=== PATIENT | male | born 1950 | race Two or more races ===

== ENCOUNTER 2017-12-28 09:49 | Inpatient (IN) | payer MEDICARE ==
[~2017-12-28] VITALS: Ht 167.6 cm; Wt 123.0 kg
[2017-12-28] VITALS (12 sets, daily range): BP systolic 120–163; BP diastolic 49–93
[~2017-12-28 09:49] MED LIST: AMLO10TA PO; ASPI81TA30 PO; ATEN50TA PO; ATOR40TA PO; COU7.5T PO; HYDR-4353 PO; LEVO500T89 PO; LISI40TA4 PO; OXYC-658 PO; WARF-55 PO
[2017-12-28] MEDS ORDERED: diphenhydrAMINE 25mg capsule PO PRN (10:30)
[2017-12-28] MEDS ORDERED: LORazepam 0.5 MG tablet PO PRN (10:30)
[2017-12-28] MEDS ORDERED: LIDOcaine/PRILOcaine 5gm cream TP ONE (10:30)
[2017-12-28] MEDS ORDERED: COU3T PO (10:36)
[2017-12-28] MEDS ORDERED: HYDR-4353 PO (10:36)
[2017-12-28] MEDS ORDERED: ENOX40SY7 SQ (10:42)
[2017-12-28] MEDS: normal saline 1000ml 1,000 ML IV SCH ×3 (11:21→20:30)
[2017-12-28 11:42] LABS: INR 1.1 INR; PROTHROMBIN TIME 10.9 SECONDS (9.0-12.0)
[2017-12-28] MEDS ORDERED: LIDOcaine 1% (10mg/ml)w/preservative injection 20ml MDV ONE (12:00)
[2017-12-28] MEDS ORDERED: fentaNYL/PF 50MCG/1 ML 2ML syringe ONE (12:00)
[2017-12-28] MEDS ORDERED: midazolam 2 mg/2 ml injection ONE (12:00)
[2017-12-28] MEDS ORDERED: iohexol 350MG/ML 100ml bottle IV ONE (12:00)
[2017-12-28] MEDS ORDERED: nitroGLYCERIN-Tridil 50MG/D5W 250 ML IV ONE (12:09)
[2017-12-28] MEDS ORDERED: verapamil 2.5 mg/ml inj IV ONE (12:09)
[2017-12-28] MEDS ORDERED: heparin 1,000unit/ml 10ml vial 10 ML ONE (12:10)
[2017-12-28] MEDS ORDERED: iohexol 350 MG/ML 50ML vial IV ONE (12:49)
[2017-12-28] MEDS ORDERED: OXAZEpam 15mg capsule PO PRN (13:35)
[2017-12-28] MEDS ORDERED: ondansetron/PF 4mg/2ml inj IV PRN ×2 (13:35→17:45)
[2017-12-28] MEDS ORDERED: nitroGLYCERIN 0.4mg SUBLingual tab SL PRN (13:35)
[2017-12-28] MEDS ORDERED: proCHLORperazine 10 MG/2 ml inj IV PRN (13:35)
[2017-12-28] MEDS ORDERED: dextrose 50%-water 50ml dispensing syringe IV PRN (17:15)
[2017-12-28] MEDS ORDERED: MESSAGE TO NURSING PO ONE ×4 (17:15)
[2017-12-28] MEDS ORDERED: morphine 2 MG/ML inj. syringe IV PRN ×2 (17:45)
[2017-12-28] MEDS ORDERED: mag hydrox/Alum hydrox/simeth 30ml oral suspension PO PRN (17:45)
[2017-12-28] MEDS ORDERED: bisacodyl 10mg suppository rectal RC PRN (17:45)
[2017-12-28] MEDS ORDERED: docusate sod 100mg capsule PO PRN (17:45)
[2017-12-28] MEDS ORDERED: potassium Cl 20 mEq SR tablet PO PRN ×2 (17:45)
[2017-12-28] MEDS ORDERED: magnesium 1gm/100ml D5W IVPB 100 ML IV PRN (17:45)
[2017-12-28] MEDS ORDERED: magnesium Cl slow-release 64mg tablet PO PRN (17:45)
[2017-12-28] MEDS ORDERED: acetaminophen 325mg tablet PO PRN ×2 (17:45)
[2017-12-28] MEDS ORDERED: potassium Cl 40MEQ/NS 500ml 500 ML IV PRN ×2 (17:45)
[2017-12-28] MEDS ORDERED: magnesium 4gm in 100ml NS 100 ML IV PRN (17:45)
[2017-12-28] MEDS ORDERED: HYDROcodone/acetaminophen 10/325mg tab PO PRN (17:50)
[2017-12-28] MEDS ORDERED: insulin Lispro (HumaLOG) vial - multi-dose SQ SCH (18:00)
[2017-12-28 18:54] LABS: HEMATOCRIT 44.6 % (42.0-52.0); HEMOGLOBIN 14.8 g/dl (14.0-17.9); MEAN CORPUSCULAR HEMOGLOBIN 30.2 PG (27.0-31.0); MEAN CORPUSCULAR HGB CONC 33.3 % (33.0-36.5); MEAN CORPUSCULAR VOLUME 90.9 FL (78-98); MEAN PLATELET VOLUME 10.5 FL (7.4-10.4); PLATELET COUNT 159 X10'3 (140-440); RED BLOOD COUNT 4.91 X10'6 (4.70-6.10); RED CELL DISTRIBUTION WIDTH 13.4 % (11.5-14.5); WHITE BLOOD COUNT 8.4 X10'3 (4.5-11.0)
[2017-12-28 19:02] LABS: ALANINE AMINOTRANSFERASE 71 U/L (12-78); ALBUMIN 3.3 G/DL (3.4-5.0); ALBUMIN/GLOBULIN RATIO 0.8 (1.1-1.5); ALKALINE PHOSPHATASE 81 IU/L (46-116); ANION GAP 7 (8-16); ASPARTATE AMINO TRANSFERASE 58 U/L (10-37); BILIRUBIN,TOTAL 0.7 MG/DL (0.1-1.0); BLOOD UREA NITROGEN 19 MG/DL (7-18); BUN/CREATININE RATIO 19.6 (5.4-32.0); CALCIUM 9.2 MG/DL (8.5-10.1); CHLORIDE 105 MMOL/L (99-107); CREATININE 0.97 MG/DL (0.60-1.10); GLUCOSE 110 MG/DL (70-104); POTASSIUM 3.8 MMOL/L (3.5-5.1); SODIUM 140 MMOL/L (135-145); TOTAL CARBON DIOXIDE 27.8 MMOL/L (24-32); TOTAL PROTEIN 7.4 G/DL (6.4-8.2); eGFR 77 ML/MIN
[2017-12-28 19:08] LABS: PARTIAL THROMBOPLASTIN TIME 27 SECONDS (22-32); PROTHROMBIN TIME 10.7 SECONDS (9.0-12.0)
[2017-12-28 19:16] LABS: HEMOGLOBIN A1C 6.1 % (4.5-6.2)
[2017-12-28] MEDS: enoxaparin 60mg/0.6ml syringe SUBCUT SCH (20:00)
[2017-12-28] MEDS: atorvastatin 20mg tablet PO SCH (21:00)
[2017-12-29 03:00] VITALS: BP 142/64
[2017-12-29] MEDS ORDERED: insulin regular, human inj. 100 UNITS in normal saline 100ml IV soln 100 ML IV SCH ×2 (05:00)
[2017-12-29 05:13] LABS: BASOPHILS % (AUTO) 0.5 % (0-1); EOSINOPHILS # (AUTO) 0.1 X10'3 (0-0.9); EOSINOPHILS % (AUTO) 0.9 % (0-6); HEMATOCRIT 41.3 % (42.0-52.0); LYMPHOCYTES # (AUTO) 1.6 X10'3 (1.1-4.8); LYMPHOCYTES % (AUTO) 19.6 % (21-51); MEAN CORPUSCULAR HEMOGLOBIN 31.1 PG (27.0-31.0); MEAN CORPUSCULAR VOLUME 91.4 FL (78-98); MEAN PLATELET VOLUME 10.2 FL (7.4-10.4); MONOCYTES # (AUTO) 0.9 X10'3 (0-0.9); MONOCYTES % (AUTO) 10.9 % (2-12); NEUTROPHILS # (AUTO) 5.3 X10'3 (1.8-7.7); NEUTROPHILS % (AUTO) 68.1 % (42-75); PLATELET COUNT 135 X10'3 (140-440); RED BLOOD COUNT 4.52 X10'6 (4.70-6.10); RED CELL DISTRIBUTION WIDTH 13.2 % (11.5-14.5); WHITE BLOOD COUNT 7.9 X10'3 (4.5-11.0)
[2017-12-29 05:41] LABS: ALANINE AMINOTRANSFERASE 83 U/L (12-78); ALBUMIN/GLOBULIN RATIO 0.8 (1.1-1.5); ALKALINE PHOSPHATASE 81 IU/L (46-116); ANION GAP 10 (8-16); ASPARTATE AMINO TRANSFERASE 56 U/L (10-37); BILIRUBIN,TOTAL 0.5 MG/DL (0.1-1.0); BLOOD UREA NITROGEN 18 MG/DL (7-18); BUN/CREATININE RATIO 19.6 (5.4-32.0); CALCIUM 8.7 MG/DL (8.5-10.1); CHLORIDE 104 MMOL/L (99-107); CHOL/HDL RATIO 4.6 (0.00-4.99); CHOLESTEROL 130 MG/DL (0-200); CREATININE 0.92 MG/DL (0.60-1.10); GLUCOSE 116 MG/DL (70-104); HDL CHOLESTEROL 28 MG/DL (35-60); LDL CHOLESTEROL 82 MG/DL (50-100); MAGNESIUM 1.5 MG/DL (1.5-2.4); POTASSIUM 4.2 MMOL/L (3.5-5.1); SODIUM 140 MMOL/L (135-145); TOTAL PROTEIN 6.8 G/DL (6.4-8.2); TRIGLYCERIDES 137 MG/DL (20-135); eGFR 82 ML/MIN
[2017-12-29 05:46] LABS: PROTHROMBIN TIME 10.8 SECONDS (9.0-12.0)
[2017-12-29 06:00] VITALS: BP 154/61
[2017-12-29] MEDS: normal saline 1000ml 1,000 ML IV SCH ×3 (06:30→18:54)
[2017-12-29] MEDS: lisinopril 20mg tablet PO SCH (07:59)
[2017-12-29] MEDS: aspirin 81mg tablet.DR PO SCH (07:59)
[2017-12-29] MEDS: enoxaparin 60mg/0.6ml syringe SUBCUT SCH (08:00)
[2017-12-29] MEDS: K and/or MAG REPLACEMENT MC SCH (08:00)
[2017-12-29] MEDS: atenolol 50mg tablet PO SCH (08:00)
[2017-12-29] MEDS: amLODIPine 5mg tablet PO SCH (08:00)
[2017-12-29] MEDS ORDERED: MESSAGE TO NURSING PO ONE ×4 (10:00→13:00)
[2017-12-29] MEDS ORDERED: iohexol 350MG/ML 100ml bottle IV ONE (10:50)
[2017-12-29] MEDS ORDERED: ceFAZolin inj. 3,000 MG in normal saline 100ml IV soln 100 ML IV ONE (13:00)
[2017-12-29] MEDS ORDERED: albuterol 2.5 MG/3 ML nebule NEB ONE (14:40)
[2017-12-29 15:00] VITALS: BP 134/74
[2017-12-29 19:00] VITALS: BP 172/73
[2017-12-29 19:41] LABS: ABG BASE EXCESS -0.7 mmol/L (-2.0-3.0); ABG HCO3 23.4 mmol/L (22.0-26.0); ABG OXYGEN SATURATION 94.9 % (95-98); ABG PCO2 (T) 37.1 mmHg (35.0-48.0); ABG PH (T) 7.418 (7.350-7.450); ALLEN'S TEST Positive; FCOHb 0.7 % (0.5-1.5); FMetHb 0.3 % (0.3-1.12); PATIENT TEMPERATURE 36.8; RESPIRATORY RATE (OBSERVED) 14 b/min; TOTAL HEMOGLOBIN 15.4 G/dl (14.0-18.0)
[2017-12-29] MEDS ORDERED: mupirocin 2% ointment 22GM NS SCH (20:00)
[2017-12-29] MEDS: mupirocin 2% nasal ointment 1gm UD NS SCH ×3 (20:00→20:10)
[2017-12-29] MEDS: atorvastatin 20mg tablet PO SCH (20:07)
[2017-12-29] MEDS ORDERED: warfarin 3mg tablet PO SCH (21:00)
[2017-12-29 23:00] VITALS: BP 122/83
[2017-12-30] VITALS (20 sets, daily range): BP systolic 102–148; BP diastolic 50–70
[2017-12-30] MEDS: normal saline 1000ml 1,000 ML IV SCH (01:53)
[2017-12-30] MEDS ORDERED: ceFAZolin inj. 3,000 MG in normal saline 100ml IV soln 100 ML IV ONE (05:00)
[2017-12-30] MEDS ORDERED: calcium chloride 100 MG/1 ML inj IV ONE (06:00)
[2017-12-30] MEDS ORDERED: potassium Cl 2 mEq/ml inj IV ONE (06:00)
[2017-12-30] MEDS ORDERED: heparin 10,000 units/1 ML INJ ONE (06:00)
[2017-12-30] MEDS ORDERED: magnesium sulf 1 GM/2 ML ONE (06:00)
[2017-12-30] MEDS ORDERED: albumin (human) 25% 100 ML IV solution IV ONE (06:00)
[2017-12-30] MEDS ORDERED: LIDOcaine 2% (20 mg/ml) 5ml cardiac syringe ONE (06:00)
[2017-12-30] MEDS ORDERED: methylPREDNISolone sod succ 1000mg vial ONE (06:00)
[2017-12-30] MEDS ORDERED: sodium bicarbonate (8.4%) 1 mEq/ml syringe ONE (06:00)
[2017-12-30] MEDS ORDERED: famotidine 20mg tablet PO ONE (06:00)
[2017-12-30] MEDS ORDERED: LORazepam 2 mg/ml vial IV ONE (06:00)
[2017-12-30] MEDS: ringers solution, lacted 1,000 ML IV SCH (06:19)
[2017-12-30 06:23] LABS: ALANINE AMINOTRANSFERASE 87 U/L (12-78); ALBUMIN 3.1 G/DL (3.4-5.0); ALBUMIN/GLOBULIN RATIO 0.8 (1.1-1.5); ALKALINE PHOSPHATASE 77 IU/L (46-116); ANION GAP 10 (8-16); ASPARTATE AMINO TRANSFERASE 49 U/L (10-37); BILIRUBIN,TOTAL 0.7 MG/DL (0.1-1.0); BLOOD UREA NITROGEN 17 MG/DL (7-18); BUN/CREATININE RATIO 18.9 (5.4-32.0); CALCIUM 8.7 MG/DL (8.5-10.1); CHLORIDE 104 MMOL/L (99-107); GLUCOSE 113 MG/DL (70-104); MAGNESIUM 1.5 MG/DL (1.5-2.4); SODIUM 138 MMOL/L (135-145); TOTAL CARBON DIOXIDE 24.4 MMOL/L (24-32); eGFR 84 ML/MIN
[2017-12-30] MEDS: atenolol 50mg tablet PO SCH (06:24)
[2017-12-30 06:27] LABS: PROTHROMBIN TIME 10.7 SECONDS (9.0-12.0)
[2017-12-30] MEDS ORDERED: SUFENTANIL CITRATE 50 MCG/ML 2ml ampule IV ONE (06:45)
[2017-12-30] MEDS ORDERED: MIDAZolam 1mg/ml 10ml vial ONE (06:45)
[2017-12-30] MEDS ORDERED: propofol inj 20 ML IV ONE (06:47)
[2017-12-30] MEDS ORDERED: rocuronium 10mg/ml inj IV ONE ×4 (06:51→11:01)
[2017-12-30 07:02] LABS: BASOPHILS % (AUTO) 0.2 % (0-1); EOSINOPHILS # (AUTO) 0.1 X10'3 (0-0.9); EOSINOPHILS % (AUTO) 0.7 % (0-6); HEMATOCRIT 43.2 % (42.0-52.0); HEMOGLOBIN 14.3 g/dl (14.0-17.9); LYMPHOCYTES # (AUTO) 1.5 X10'3 (1.1-4.8); LYMPHOCYTES % (AUTO) 16.3 % (21-51); MEAN CORPUSCULAR HEMOGLOBIN 30.6 PG (27.0-31.0); MEAN CORPUSCULAR HGB CONC 33.1 % (33.0-36.5); MEAN CORPUSCULAR VOLUME 92.5 FL (78-98); MEAN PLATELET VOLUME 10.2 FL (7.4-10.4); MONOCYTES % (AUTO) 11.4 % (2-12); NEUTROPHILS # (AUTO) 6.5 X10'3 (1.8-7.7); NEUTROPHILS % (AUTO) 71.4 % (42-75); PLATELET COUNT 138 X10'3 (140-440); RED BLOOD COUNT 4.67 X10'6 (4.70-6.10); RED CELL DISTRIBUTION WIDTH 13.1 % (11.5-14.5); WHITE BLOOD COUNT 9.1 X10'3 (4.5-11.0)
[2017-12-30 07:36] LABS: ABG BASE EXCESS -4.6 mmol/L (-2.0-3.0); ABG HCO3 20.7 mmol/L (22.0-26.0); ABG OXYGEN SATURATION 96.7 % (95-98); ABG PCO2 39.1 mmHg (35.0-45.0); ABG PH 7.342 (7.350-7.450); ABG PO2 91.4 mmHg (60.0-100.0); CL (ABG) 105 mmol/L (99-107); FMetHb 0.2 % (0.3-1.12); FO2Hb 95.5 % (94-100); GLUCOSE (ABG) 121 mg/dl (70-105); IONIZED CA (ABG) 1.15 mmol/L (1.03-1.32); K (ABG) 3.9 mmol/L (3.3-5.1); NA (ABG) < 110 mmol/L (135-145); TOTAL HEMOGLOBIN 13.6 G/dl (14.0-18.0)
[2017-12-30] MEDS ORDERED: heparin 10,000 units/1 ML INJ IR ONE (07:58)
[2017-12-30] MEDS ORDERED: papaverine 30 mg/ml 2ml inj. IA ONE (07:58)
[2017-12-30] MEDS: amLODIPine 5mg tablet PO SCH (08:00)
[2017-12-30] MEDS: K and/or MAG REPLACEMENT MC SCH (08:00)
[2017-12-30] MEDS: mupirocin 2% nasal ointment 1gm UD NS SCH (08:00)
[2017-12-30] MEDS: lisinopril 20mg tablet PO SCH (08:00)
[2017-12-30] MEDS: aspirin 81mg tablet.DR PO SCH (08:00)
[2017-12-30 09:15] LABS: ABG BASE EXCESS VENOUS -5.5 mmol/L; ABG HCO3 VENOUS 20.1 mmol/L; ABG PCO2 VENOUS 39.4 mmHg; ABG PO2 VENOUS 39.9 mmHg; CL (ABG) 105 mmol/L (99-107); FCOHb VENOUS 1.3 %; FHHb VENOUS 27.9 %; FMetHb VENOUS 0.3 %; FO2Hb VENOUS 70.5 %; GLUCOSE (ABG) 140 mg/dl (70-105); IONIZED CA (ABG) 1.13 mmol/L (1.03-1.32); K (ABG) 4.1 mmol/L (3.3-5.1); NA (ABG) 131 mmol/L (135-145)
[2017-12-30] MEDS ORDERED: MESSAGE TO NURSING PO ONE (10:00)
[2017-12-30 10:05] LABS: ACT @ 1.70 U 295 SEC (193-297); ACT @ 2.84 U 428 SEC (260-420); BASELINE ACT 147 SEC (101-148)
[2017-12-30] MEDS ORDERED: fentaNYL /PF 50mcg/ml 5ml ampule ONE (10:06)
[2017-12-30 10:31] LABS: ABG BASE EXCESS -4.5 mmol/L (-2.0-3.0); ABG HCO3 20.1 mmol/L (22.0-26.0); ABG OXYGEN SATURATION 99.4 % (95-98); ABG PCO2 35.4 mmHg (35.0-45.0); ABG PH 7.373 (7.350-7.450); CL (ABG) 105 mmol/L (99-107); FCOHb 0.4 % (0.5-1.5); FMetHb 0.2 % (0.3-1.12); FO2Hb 98.8 % (94-100); GLUCOSE (ABG) 136 mg/dl (70-105); IONIZED CA (ABG) 1.07 mmol/L (1.03-1.32); K (ABG) 5.5 mmol/L (3.3-5.1); NA (ABG) 128 mmol/L (135-145); TOTAL HEMOGLOBIN 10.8 G/dl (14.0-18.0)
[2017-12-30 10:36] LABS: ABG BASE EXCESS VENOUS 1.6 mmol/L; ABG HCO3 VENOUS 25.9 mmol/L; ABG PCO2 VENOUS 39.6 mmHg; ABG PO2 VENOUS 189.4 mmHg; CL (ABG) 105 mmol/L (99-107); FCOHb VENOUS 0.3 %; FHHb VENOUS 1.2 %; FMetHb VENOUS 0.3 %; FO2Hb VENOUS 98.2 %; GLUCOSE (ABG) 139 mg/dl (70-105); IONIZED CA (ABG) 1.03 mmol/L (1.03-1.32); K (ABG) 6.2 mmol/L (3.3-5.1); NA (ABG) 131 mmol/L (135-145); TOTAL HEMOGLOBIN 10.4 G/dl (14.0-18.0)
[2017-12-30 10:56] LABS: ABG BASE EXCESS -0.3 mmol/L (-2.0-3.0); ABG HCO3 24.6 mmol/L (22.0-26.0); ABG OXYGEN SATURATION 99.2 % (95-98); ABG PCO2 41.2 mmHg (35.0-45.0); ABG PH 7.394 (7.350-7.450); ABG PO2 322.8 mmHg (60.0-100.0); CL (ABG) 106 mmol/L (99-107); FCOHb 0.4 % (0.5-1.5); FMetHb 0.3 % (0.3-1.12); FO2Hb 98.5 % (94-100); GLUCOSE (ABG) 145 mg/dl (70-105); IONIZED CA (ABG) 1.05 mmol/L (1.03-1.32); K (ABG) 5.6 mmol/L (3.3-5.1); NA (ABG) 130 mmol/L (135-145); TOTAL HEMOGLOBIN 10.7 G/dl (14.0-18.0)
[2017-12-30 11:16] LABS: ABG BASE EXCESS -0.7 mmol/L (-2.0-3.0); ABG HCO3 23.9 mmol/L (22.0-26.0); ABG OXYGEN SATURATION 99.3 % (95-98); ABG PCO2 39.3 mmHg (35.0-45.0); ABG PH 7.402 (7.350-7.450); ABG PO2 302.7 mmHg (60.0-100.0); CL (ABG) 103 mmol/L (99-107); FCOHb 0.6 % (0.5-1.5); FMetHb 0.2 % (0.3-1.12); FO2Hb 98.5 % (94-100); GLUCOSE (ABG) 136 mg/dl (70-105); IONIZED CA (ABG) 1.03 mmol/L (1.03-1.32); K (ABG) 5.2 mmol/L (3.3-5.1); NA (ABG) 126 mmol/L (135-145); TOTAL HEMOGLOBIN 9.7 G/dl (14.0-18.0)
[2017-12-30 11:45] LABS: ABG BASE EXCESS VENOUS -0.4 mmol/L; ABG HCO3 VENOUS 25.1 mmol/L; ABG PCO2 VENOUS 45.1 mmHg; ABG PO2 VENOUS 51.5 mmHg; CL (ABG) 106 mmol/L (99-107); FCOHb VENOUS 0.9 %; FHHb VENOUS 16.3 %; FMetHb VENOUS 0.4 %; FO2Hb VENOUS 82.4 %; GLUCOSE (ABG) 132 mg/dl (70-105); IONIZED CA (ABG) 1.23 mmol/L (1.03-1.32); K (ABG) 4.9 mmol/L (3.3-5.1); NA (ABG) 131 mmol/L (135-145); TOTAL HEMOGLOBIN 10.7 G/dl (14.0-18.0)
[2017-12-30] MEDS ORDERED: sodium phosphate inj. 30 MMOL in dextrose 5%-water 250 ML IV PRN (12:35)
[2017-12-30] MEDS ORDERED: sodium phosphate inj. 15 MMOL in dextrose 5%-water 150 ML IV PRN (12:35)
[2017-12-30] MEDS ORDERED: albumin (Human) 5% 250ml 250 ML IV PRN (12:35)
[2017-12-30] MEDS ORDERED: dextrose 50%-water 50ml dispensing syringe IV PRN (12:35)
[2017-12-30] MEDS ORDERED: nitroGLYCERIN-Tridil 50MG/D5W 250 ML IV PRN (12:35)
[2017-12-30] MEDS ORDERED: ondansetron/PF 4mg/2ml inj IV PRN (12:35)
[2017-12-30] MEDS ORDERED: morphine 4 MG/ML inj SYRINge IV PRN (12:35)
[2017-12-30] MEDS ORDERED: potassium Cl 20mEq/100mL bag 100 ML IV PRN ×3 (12:35)
[2017-12-30] MEDS ORDERED: insulin regular, human inj. 100 UNITS in normal saline 100ml IV soln 100 ML IV SCH ×2 (12:35)
[2017-12-30] MEDS ORDERED: magnesium 4gm in 100ml NS 100 ML IV PRN (12:35)
[2017-12-30] MEDS ORDERED: sodium chloride 0.45% 1,000 ML IV SCH (12:35)
[2017-12-30] MEDS ORDERED: niCARDipine-NS 40mg/200ml IVPB 200 ML IV PRN (12:35)
[2017-12-30] MEDS ORDERED: metoclopramide 5 mg/ml inj IV PRN (12:35)
[2017-12-30] MEDS ORDERED: normal saline 250ml IV soln 250 ML IV PRN (12:35)
[2017-12-30] MEDS ORDERED: Neutra Phos packet PO PRN (12:35)
[2017-12-30] MEDS ORDERED: DOPamine 400mg/D5W 250ml 250 ML IV PRN (12:35)
[2017-12-30] MEDS ORDERED: magnesium hydroxide 30ml (MOM) UD suspension PO PRN (12:35)
[2017-12-30] MEDS ORDERED: acetaminophen 325mg tablet PO PRN (12:35)
[2017-12-30 12:55] LABS: ABG BASE EXCESS -2.3 mmol/L (-2.0-3.0); ABG HCO3 22.5 mmol/L (22.0-26.0); ABG OXYGEN SATURATION 97.2 % (95-98); ABG PCO2 (T) 38.9 mmHg (35.0-48.0); ABG PH (T) 7.379 (7.350-7.450); ABG PO2 (T) 99.5 mmHg (83-108); FCOHb 0.9 % (0.5-1.5); FMetHb 0.3 % (0.3-1.12); MINUTE VOLUME 8 L/min; PATIENT TEMPERATURE 36.9; PEEP 5 cm H2O; RESPIRATORY RATE 12 b/min; TIDAL VOLUME 650 mL; TOTAL HEMOGLOBIN 13.9 G/dl (14.0-18.0)
[2017-12-30] MEDS: insulin Lispro (HumaLOG) vial - multi-dose SQ SCH ×2 (13:00→17:58)
[2017-12-30 13:28] LABS: BASOPHILS % (AUTO) 0 % (0-1); EOSINOPHILS % (AUTO) 0.1 % (0-6); HEMOGLOBIN 13.1 g/dl (14.0-17.9); LYMPHOCYTES # (AUTO) 0.5 X10'3 (1.1-4.8); LYMPHOCYTES % (AUTO) 2.3 % (21-51); MEAN CORPUSCULAR HEMOGLOBIN 31.4 PG (27.0-31.0); MEAN CORPUSCULAR HGB CONC 34.6 % (33.0-36.5); MEAN CORPUSCULAR VOLUME 90.8 FL (78-98); MEAN PLATELET VOLUME 9.8 FL (7.4-10.4); MONOCYTES # (AUTO) 0.9 X10'3 (0-0.9); MONOCYTES % (AUTO) 4.1 % (2-12); NEUTROPHILS # (AUTO) 19.4 X10'3 (1.8-7.7); NEUTROPHILS % (AUTO) 93.5 % (42-75); PLATELET COUNT 90 X10'3 (140-440); RED BLOOD COUNT 4.18 X10'6 (4.70-6.10); WHITE BLOOD COUNT 20.8 X10'3 (4.5-11.0)
[2017-12-30 13:31] LABS: ALANINE AMINOTRANSFERASE 63 U/L (12-78); ALBUMIN/GLOBULIN RATIO 1.2 (1.1-1.5); ALKALINE PHOSPHATASE 59 IU/L (46-116); ANION GAP 9 (8-16); ASPARTATE AMINO TRANSFERASE 58 U/L (10-37); BLOOD UREA NITROGEN 17 MG/DL (7-18); BUN/CREATININE RATIO 16.2 (5.4-32.0); CALCIUM 8.1 MG/DL (8.5-10.1); CHLORIDE 107 MMOL/L (99-107); CREATININE 1.05 MG/DL (0.60-1.10); GLUCOSE 139 MG/DL (70-104); MAGNESIUM 2.6 MG/DL (1.5-2.4); PHOSPHORUS 2.3 MG/DL (2.3-4.5); SODIUM 141 MMOL/L (135-145); TOTAL CARBON DIOXIDE 25.5 MMOL/L (24-32); TOTAL PROTEIN 5.5 G/DL (6.4-8.2); eGFR 70 ML/MIN
[2017-12-30 13:33] LABS: INR 1.1 INR; PARTIAL THROMBOPLASTIN TIME 26 SECONDS (22-32); PROTHROMBIN TIME 11.4 SECONDS (9.0-12.0)
[2017-12-30 13:42] LABS: POTASSIUM 4.5 MMOL/L (3.5-5.1)
[2017-12-30] MEDS: morphine 4 MG/ML inj SYRINge IV PRN ×6 (13:48→21:07)
[2017-12-30] MEDS: insulin regular, human inj. 100 UNITS in normal saline 100ml IV soln 100 ML IV SCH ×2 (14:25)
[2017-12-30 14:51] LABS: TOTAL CELLS COUNTED 100
[2017-12-30 14:53] LABS: PLATELET ESTIMATE DECREASED
[2017-12-30 14:56] LABS: ACTIVATED CLOTTING TIME 113 SEC (101-148)
[2017-12-30] MEDS: cefazolin/dext.iso 2gm/50ml 50 ML IV SCH (16:04)
[2017-12-30 18:10] LABS: BASOPHILS % (AUTO) 0 % (0-1); EOSINOPHILS % (AUTO) 0 % (0-6); HEMOGLOBIN 12.6 g/dl (14.0-17.9); LYMPHOCYTES # (AUTO) 0.4 X10'3 (1.1-4.8); LYMPHOCYTES % (AUTO) 2.8 % (21-51); MEAN CORPUSCULAR HEMOGLOBIN 32.3 PG (27.0-31.0); MEAN CORPUSCULAR HGB CONC 35.1 % (33.0-36.5); MEAN CORPUSCULAR VOLUME 91.9 FL (78-98); MEAN PLATELET VOLUME 10.4 FL (7.4-10.4); MONOCYTES # (AUTO) 0.5 X10'3 (0-0.9); MONOCYTES % (AUTO) 3.5 % (2-12); NEUTROPHILS # (AUTO) 14.6 X10'3 (1.8-7.7); NEUTROPHILS % (AUTO) 93.7 % (42-75); PLATELET COUNT 97 X10'3 (140-440); RED BLOOD COUNT 3.92 X10'6 (4.70-6.10); RED CELL DISTRIBUTION WIDTH 13.4 % (11.5-14.5); WHITE BLOOD COUNT 15.5 X10'3 (4.5-11.0)
[2017-12-30 18:21] LABS: ALBUMIN 3.2 G/DL (3.4-5.0); ANION GAP 9 (8-16); BLOOD UREA NITROGEN 18 MG/DL (7-18); BUN/CREATININE RATIO 17.3 (5.4-32.0); CALCIUM 8.1 MG/DL (8.5-10.1); CHLORIDE 107 MMOL/L (99-107); CREATININE 1.04 MG/DL (0.60-1.10); GLUCOSE 145 MG/DL (70-104); POTASSIUM 4.2 MMOL/L (3.5-5.1); SODIUM 140 MMOL/L (135-145); eGFR 71 ML/MIN
[2017-12-30] MEDS: vancomycin/NS 1 GM ADD-VANTAGE 250 ML IV SCH (19:54)
[2017-12-30] MEDS ORDERED: mupirocin 2% ointment 22GM NS SCH (20:00)
[2017-12-30] MEDS: docusate sod 100mg capsule PO SCH (20:00)
[2017-12-30] MEDS: atorvastatin 20mg tablet PO SCH (21:00)
[2017-12-30 21:30] LABS: ABG BASE EXCESS -3.1 mmol/L (-2.0-3.0); ABG OXYGEN SATURATION 95.6 % (95-98); ABG PCO2 (T) 39.5 mmHg (35.0-48.0); ABG PH (T) 7.363 (7.350-7.450); ABG PO2 (T) 83.3 mmHg (83-108); FCOHb 0.6 % (0.5-1.5); FMetHb 0.3 % (0.3-1.12); FO2Hb 94.7 % (94-100); MINUTE VOLUME 8 L/min; PEEP 5 cm H2O; RESPIRATORY RATE (OBSERVED) 22 b/min; TOTAL HEMOGLOBIN 13.2 G/dl (14.0-18.0)
[2017-12-31] VITALS (24 sets, daily range): BP systolic 111–164; BP diastolic 41–69
[2017-12-31] MEDS: cefazolin/dext.iso 2gm/50ml 50 ML IV SCH ×2 (01:03→07:31)
[2017-12-31] MEDS: HYDROcodone/acetaminophen 10/325mg tab PO PRN ×3 (01:08→13:44)
[2017-12-31] MEDS: ringers solution, lacted 1,000 ML IV SCH ×2 (01:30→21:30)
[2017-12-31 01:49] LABS: PARTIAL THROMBOPLASTIN TIME 28 SECONDS (22-32); PROTHROMBIN TIME 10.6 SECONDS (9.0-12.0)
[2017-12-31 01:50] LABS: ALANINE AMINOTRANSFERASE 58 U/L (12-78); ALBUMIN/GLOBULIN RATIO 1.1 (1.1-1.5); ALKALINE PHOSPHATASE 55 IU/L (46-116); ANION GAP 12 (8-16); ASPARTATE AMINO TRANSFERASE 56 U/L (10-37); BILIRUBIN,TOTAL 0.6 MG/DL (0.1-1.0); BLOOD UREA NITROGEN 19 MG/DL (7-18); BUN/CREATININE RATIO 20.9 (5.4-32.0); CALCIUM 7.9 MG/DL (8.5-10.1); CHLORIDE 108 MMOL/L (99-107); CREATININE 0.91 MG/DL (0.60-1.10); GLUCOSE 141 MG/DL (70-104); PHOSPHORUS 3.9 MG/DL (2.3-4.5); POTASSIUM 4.7 MMOL/L (3.5-5.1); SODIUM 141 MMOL/L (135-145); TOTAL CARBON DIOXIDE 21.2 MMOL/L (24-32); TOTAL PROTEIN 5.8 G/DL (6.4-8.2); eGFR 83 ML/MIN
[2017-12-31 01:51] LABS: ABG BASE EXCESS -4.5 mmol/L (-2.0-3.0); ABG HCO3 20.4 mmol/L (22.0-26.0); ABG OXYGEN SATURATION 96.1 % (95-98); ABG PCO2 (T) 37.4 mmHg (35.0-48.0); ABG PH (T) 7.356 (7.350-7.450); ABG PO2 (T) 88.8 mmHg (83-108); FCOHb 0.5 % (0.5-1.5); FMetHb 0.2 % (0.3-1.12); FO2Hb 95.4 % (94-100); MINUTE VOLUME 10 L/min; PATIENT TEMPERATURE 37.3; PEEP 5 cm H2O; RESPIRATORY RATE (OBSERVED) 26 b/min; TOTAL HEMOGLOBIN 12.7 G/dl (14.0-18.0)
[2017-12-31 02:12] LABS: BASOPHILS % (AUTO) 0 % (0-1); EOSINOPHILS % (AUTO) 0 % (0-6); HEMATOCRIT 34.3 % (42.0-52.0); LYMPHOCYTES # (AUTO) 0.4 X10'3 (1.1-4.8); MEAN CORPUSCULAR HEMOGLOBIN 32.3 PG (27.0-31.0); MEAN CORPUSCULAR HGB CONC 35.1 % (33.0-36.5); MEAN CORPUSCULAR VOLUME 92.1 FL (78-98); MEAN PLATELET VOLUME 10.6 FL (7.4-10.4); MONOCYTES % (AUTO) 6.9 % (2-12); NEUTROPHILS # (AUTO) 13.4 X10'3 (1.8-7.7); NEUTROPHILS % (AUTO) 90.1 % (42-75); PLATELET COUNT 92 X10'3 (140-440); RED BLOOD COUNT 3.72 X10'6 (4.70-6.10); RED CELL DISTRIBUTION WIDTH 13.3 % (11.5-14.5); WHITE BLOOD COUNT 14.8 X10'3 (4.5-11.0)
[2017-12-31 02:42] LABS: TOTAL CELLS COUNTED 100
[2017-12-31 02:44] LABS: PLATELET ESTIMATE DECREASED
[2017-12-31] MEDS: insulin regular, human inj. 100 UNITS in normal saline 100ml IV soln 100 ML IV SCH ×2 (06:00)
[2017-12-31] MEDS: metoprolol tartrate 12.5mg (1/2 tablet) PO SCH ×2 (07:23→19:55)
[2017-12-31] MEDS ORDERED: atorvastatin 10mg tablet PO SCH (08:00)
[2017-12-31] MEDS ORDERED: aspirin 325mg tablet, delayed-release (Ecotrin) PO SCH (08:00)
[2017-12-31] MEDS: K and/or MAG REPLACEMENT MC SCH (08:00)
[2017-12-31] MEDS: insulin Lispro (HumaLOG) vial - multi-dose SQ SCH ×3 (08:34→18:00)
[2017-12-31] MEDS: docusate sod 100mg capsule PO SCH ×2 (08:54→19:55)
[2017-12-31] MEDS: vancomycin/NS 1 GM ADD-VANTAGE 250 ML IV SCH ×2 (08:54→19:54)
[2017-12-31] MEDS: pantoprazole 40mg Tablet.DR PO SCH (08:54)
[2017-12-31] MEDS: cefazolin/dext.iso 2gm/100ml 100 ML IV SCH (16:02)
[2017-12-31] MEDS: lactobacillus rhamnosus 10,000 MMU CELLS/CAPSULE PO SCH (19:55)
[2017-12-31] MEDS: atorvastatin 20mg tablet PO SCH (19:55)
[2018-01-01] VITALS (17 sets, daily range): BP systolic 100–154; BP diastolic 40–86
[2018-01-01] MEDS: cefazolin/dext.iso 2gm/100ml 100 ML IV SCH (00:17)
[2018-01-01 02:53] LABS: BASOPHILS # (AUTO) 0.1 X10'3 (0-0.2); BASOPHILS % (AUTO) 0.3 % (0-1); EOSINOPHILS % (AUTO) 0 % (0-6); HEMATOCRIT 31.1 % (42.0-52.0); HEMOGLOBIN 10.8 g/dl (14.0-17.9); LYMPHOCYTES # (AUTO) 0.7 X10'3 (1.1-4.8); LYMPHOCYTES % (AUTO) 3.9 % (21-51); MEAN CORPUSCULAR HGB CONC 34.5 % (33.0-36.5); MEAN CORPUSCULAR VOLUME 92.7 FL (78-98); MEAN PLATELET VOLUME 10.3 FL (7.4-10.4); MONOCYTES # (AUTO) 1.7 X10'3 (0-0.9); MONOCYTES % (AUTO) 9.3 % (2-12); NEUTROPHILS # (AUTO) 15.3 X10'3 (1.8-7.7); NEUTROPHILS % (AUTO) 86.5 % (42-75); PLATELET COUNT 90 X10'3 (140-440); RED BLOOD COUNT 3.36 X10'6 (4.70-6.10); RED CELL DISTRIBUTION WIDTH 13.5 % (11.5-14.5); WHITE BLOOD COUNT 17.8 X10'3 (4.5-11.0)
[2018-01-01 03:20] LABS: ALANINE AMINOTRANSFERASE 39 U/L (12-78); ALBUMIN 2.9 G/DL (3.4-5.0); ALBUMIN/GLOBULIN RATIO 0.9 (1.1-1.5); ALKALINE PHOSPHATASE 54 IU/L (46-116); ANION GAP 6 (8-16); ASPARTATE AMINO TRANSFERASE 31 U/L (10-37); BILIRUBIN,TOTAL 0.3 MG/DL (0.1-1.0); CALCIUM 7.8 MG/DL (8.5-10.1); CHLORIDE 104 MMOL/L (99-107); CREATININE 1.04 MG/DL (0.60-1.10); GLUCOSE 153 MG/DL (70-104); MAGNESIUM 2.4 MG/DL (1.5-2.4); PHOSPHORUS 2.8 MG/DL (2.3-4.5); POTASSIUM 4.8 MMOL/L (3.5-5.1); SODIUM 136 MMOL/L (135-145); TOTAL CARBON DIOXIDE 26.4 MMOL/L (24-32); eGFR 71 ML/MIN
[2018-01-01 03:31] LABS: BLOOD UREA NITROGEN 28 MG/DL (7-18); BUN/CREATININE RATIO 26.9 (5.4-32.0)
[2018-01-01] MEDS: magnesium 1gm/100ml D5W IVPB 100 ML IV PRN ×2 (04:33→05:27)
[2018-01-01] MEDS: insulin regular, human inj. 100 UNITS in normal saline 100ml IV soln 100 ML IV SCH ×2 (05:00)
[2018-01-01] MEDS: HYDROcodone/acetaminophen 10/325mg tab PO PRN ×3 (06:04→20:25)
[2018-01-01] MEDS ORDERED: magnesium 4gm in 100ml NS 100 ML IV PRN (07:25)
[2018-01-01] MEDS ORDERED: magnesium 1gm/100ml D5W IVPB 100 ML IV PRN (07:25)
[2018-01-01] MEDS ORDERED: potassium Cl 20 mEq SR tablet PO PRN ×2 (07:25)
[2018-01-01] MEDS ORDERED: magnesium Cl slow-release 64mg tablet PO PRN (07:25)
[2018-01-01] MEDS ORDERED: potassium Cl 40MEQ/NS 500ml 500 ML IV PRN ×2 (07:25)
[2018-01-01 07:45] LABS: PROTHROMBIN TIME 10.4 SECONDS (9.0-12.0)
[2018-01-01] MEDS: potassium Cl 20 mEq SR tablet PO SCH ×2 (08:00→20:00)
[2018-01-01] MEDS: magnesium Cl slow-release 64mg tablet PO SCH ×2 (08:00→20:00)
[2018-01-01] MEDS: docusate sod 100mg capsule PO SCH ×2 (08:23→20:21)
[2018-01-01] MEDS: lactobacillus rhamnosus 10,000 MMU CELLS/CAPSULE PO SCH ×2 (08:23→20:19)
[2018-01-01] MEDS: aspirin 81mg tab.chew PO SCH (08:23)
[2018-01-01] MEDS: pantoprazole 40mg Tablet.DR PO SCH (08:23)
[2018-01-01] MEDS: atenolol 25mg tablet PO SCH (08:26)
[2018-01-01] MEDS: K and/or MAG REPLACEMENT MC SCH (08:49)
[2018-01-01] MEDS: insulin Lispro (HumaLOG) vial - multi-dose SQ SCH ×2 (09:00→13:00)
[2018-01-01] MEDS: lisinopril 20mg tablet PO SCH (20:18)
[2018-01-01] MEDS: atorvastatin 20mg tablet PO SCH (20:21)
[2018-01-01] MEDS ORDERED: warfarin 5mg tablet PO ONE (21:00)
[2018-01-02] VITALS (7 sets, daily range): BP systolic 84–131; BP diastolic 52–83
[2018-01-02] MEDS: HYDROcodone/acetaminophen 10/325mg tab PO PRN ×4 (03:44→21:06)
[2018-01-02 05:07] LABS: BASOPHILS % (AUTO) 0.2 % (0-1); EOSINOPHILS # (AUTO) 0.1 X10'3 (0-0.9); EOSINOPHILS % (AUTO) 0.7 % (0-6); HEMATOCRIT 33.2 % (42.0-52.0); LYMPHOCYTES # (AUTO) 1.3 X10'3 (1.1-4.8); LYMPHOCYTES % (AUTO) 9.2 % (21-51); MEAN CORPUSCULAR HEMOGLOBIN 30.9 PG (27.0-31.0); MEAN CORPUSCULAR HGB CONC 33.1 % (33.0-36.5); MEAN CORPUSCULAR VOLUME 93.4 FL (78-98); MEAN PLATELET VOLUME 9.6 FL (7.4-10.4); MONOCYTES # (AUTO) 1.6 X10'3 (0-0.9); MONOCYTES % (AUTO) 10.7 % (2-12); NEUTROPHILS # (AUTO) 11.5 X10'3 (1.8-7.7); NEUTROPHILS % (AUTO) 79.2 % (42-75); PLATELET COUNT 113 X10'3 (140-440); RED BLOOD COUNT 3.55 X10'6 (4.70-6.10); RED CELL DISTRIBUTION WIDTH 14.3 % (11.5-14.5); WHITE BLOOD COUNT 14.6 X10'3 (4.5-11.0)
[2018-01-02 05:24] LABS: ALBUMIN 2.7 G/DL (3.4-5.0); ANION GAP 6 (8-16); BLOOD UREA NITROGEN 25 MG/DL (7-18); BUN/CREATININE RATIO 25.3 (5.4-32.0); CHLORIDE 105 MMOL/L (99-107); CREATININE 0.99 MG/DL (0.60-1.10); GLUCOSE 130 MG/DL (70-104); MAGNESIUM 1.9 MG/DL (1.5-2.4); POTASSIUM 4.4 MMOL/L (3.5-5.1); SODIUM 138 MMOL/L (135-145); TOTAL CARBON DIOXIDE 27.2 MMOL/L (24-32); eGFR 75 ML/MIN
[2018-01-02 05:30] LABS: PROTHROMBIN TIME 10.7 SECONDS (9.0-12.0)
[2018-01-02] MEDS: potassium Cl 20 mEq SR tablet PO SCH ×2 (07:36→20:00)
[2018-01-02] MEDS: K and/or MAG REPLACEMENT MC SCH (08:00)
[2018-01-02] MEDS: docusate sod 100mg capsule PO SCH ×2 (08:28→20:56)
[2018-01-02] MEDS: aspirin 81mg tab.chew PO SCH (08:28)
[2018-01-02] MEDS: lactobacillus rhamnosus 10,000 MMU CELLS/CAPSULE PO SCH ×2 (08:28→20:56)
[2018-01-02] MEDS: pantoprazole 40mg Tablet.DR PO SCH (08:28)
[2018-01-02] MEDS: magnesium Cl slow-release 64mg tablet PO SCH ×2 (08:29→20:57)
[2018-01-02] MEDS: atenolol 25mg tablet PO SCH (08:30)
[2018-01-02] MEDS: atorvastatin 20mg tablet PO SCH (20:58)
[2018-01-02] MEDS: lisinopril 20mg tablet PO SCH (21:07)
[2018-01-02] MEDS: warfarin 3mg tablet PO SCH (21:09)
[2018-01-03 03:00] VITALS: BP 128/62
[2018-01-03 05:13] LABS: HEMATOCRIT 33.2 % (42.0-52.0); HEMOGLOBIN 10.9 g/dl (14.0-17.9); RED BLOOD COUNT 3.57 X10'6 (4.70-6.10); WHITE BLOOD COUNT 10.2 X10'3 (4.5-11.0)
[2018-01-03 05:14] LABS: BASOPHILS % (AUTO) 0.2 % (0-1); EOSINOPHILS % (AUTO) 0.2 % (0-6); LYMPHOCYTES % (AUTO) 9.7 % (21-51); MEAN CORPUSCULAR HEMOGLOBIN 30.4 PG (27.0-31.0); MEAN CORPUSCULAR HGB CONC 32.7 % (33.0-36.5); MEAN PLATELET VOLUME 9.8 FL (7.4-10.4); MONOCYTES # (AUTO) 1.3 X10'3 (0-0.9); MONOCYTES % (AUTO) 12.7 % (2-12); NEUTROPHILS # (AUTO) 7.8 X10'3 (1.8-7.7); NEUTROPHILS % (AUTO) 77.2 % (42-75); PLATELET COUNT 127 X10'3 (140-440); RED CELL DISTRIBUTION WIDTH 14.7 % (11.5-14.5)
[2018-01-03 05:33] LABS: ALBUMIN 2.7 G/DL (3.4-5.0); ANION GAP 6 (8-16); BLOOD UREA NITROGEN 24 MG/DL (7-18); CALCIUM 8.3 MG/DL (8.5-10.1); CHLORIDE 104 MMOL/L (99-107); CREATININE 0.96 MG/DL (0.60-1.10); GLUCOSE 119 MG/DL (70-104); MAGNESIUM 1.9 MG/DL (1.5-2.4); POTASSIUM 4.4 MMOL/L (3.5-5.1); SODIUM 138 MMOL/L (135-145); TOTAL CARBON DIOXIDE 27.6 MMOL/L (24-32); eGFR 78 ML/MIN
[2018-01-03 05:56] LABS: PROTHROMBIN TIME 10.7 SECONDS (9.0-12.0)
[2018-01-03] MEDS ORDERED: magnesium citrate 296ml oral solution PO ONE (06:45)
[2018-01-03 07:00] VITALS: BP 147/69
[2018-01-03] MEDS: potassium Cl 20 mEq SR tablet PO SCH ×2 (08:00→20:00)
[2018-01-03] MEDS: K and/or MAG REPLACEMENT MC SCH (08:00)
[2018-01-03] MEDS: docusate sod 100mg capsule PO SCH ×2 (08:26→21:14)
[2018-01-03] MEDS: aspirin 81mg tab.chew PO SCH (08:26)
[2018-01-03] MEDS: lactobacillus rhamnosus 10,000 MMU CELLS/CAPSULE PO SCH ×2 (08:26→21:12)
[2018-01-03] MEDS: atenolol 25mg tablet PO SCH (08:26)
[2018-01-03] MEDS: pantoprazole 40mg Tablet.DR PO SCH (08:26)
[2018-01-03] MEDS: magnesium Cl slow-release 64mg tablet PO SCH ×2 (08:27→21:13)
[2018-01-03] MEDS: HYDROcodone/acetaminophen 10/325mg tab PO PRN ×2 (08:34→14:07)
[2018-01-03 11:00] VITALS: BP 130/57
[2018-01-03 15:00] VITALS: BP 126/64
[2018-01-03 19:00] VITALS: BP 147/75
[2018-01-03] MEDS: lisinopril 20mg tablet PO SCH (21:13)
[2018-01-03] MEDS: warfarin 3mg tablet PO SCH (21:13)
[2018-01-03] MEDS: atorvastatin 20mg tablet PO SCH (21:13)
[2018-01-03 23:00] VITALS: BP 147/69
[2018-01-04] MEDS: HYDROcodone/acetaminophen 10/325mg tab PO PRN (01:27)
[2018-01-04 03:00] VITALS: BP 119/51
[2018-01-04 05:25] LABS: BASOPHILS % (AUTO) 0.2 % (0-1); EOSINOPHILS # (AUTO) 0.2 X10'3 (0-0.9); EOSINOPHILS % (AUTO) 1.8 % (0-6); HEMATOCRIT 33.4 % (42.0-52.0); LYMPHOCYTES # (AUTO) 1.3 X10'3 (1.1-4.8); LYMPHOCYTES % (AUTO) 11.7 % (21-51); MEAN CORPUSCULAR HEMOGLOBIN 30.6 PG (27.0-31.0); MEAN CORPUSCULAR HGB CONC 32.9 % (33.0-36.5); MEAN CORPUSCULAR VOLUME 92.8 FL (78-98); MEAN PLATELET VOLUME 9.4 FL (7.4-10.4); MONOCYTES # (AUTO) 1.3 X10'3 (0-0.9); MONOCYTES % (AUTO) 11.5 % (2-12); NEUTROPHILS # (AUTO) 8.6 X10'3 (1.8-7.7); NEUTROPHILS % (AUTO) 74.8 % (42-75); PLATELET COUNT 162 X10'3 (140-440); RED CELL DISTRIBUTION WIDTH 14.3 % (11.5-14.5); WHITE BLOOD COUNT 11.5 X10'3 (4.5-11.0)
[2018-01-04 05:48] LABS: INR 1.1 INR; PROTHROMBIN TIME 11.2 SECONDS (9.0-12.0)
[2018-01-04 05:54] LABS: ALBUMIN 2.7 G/DL (3.4-5.0); ANION GAP 6 (8-16); BLOOD UREA NITROGEN 22 MG/DL (7-18); CALCIUM 8.5 MG/DL (8.5-10.1); CHLORIDE 104 MMOL/L (99-107); CREATININE 1.16 MG/DL (0.60-1.10); GLUCOSE 118 MG/DL (70-104); MAGNESIUM 1.9 MG/DL (1.5-2.4); POTASSIUM 4.7 MMOL/L (3.5-5.1); SODIUM 138 MMOL/L (135-145); eGFR 63 ML/MIN
[2018-01-04 06:00] VITALS: BP 124/56
[2018-01-04] MEDS: potassium Cl 20 mEq SR tablet PO SCH (08:00)
[2018-01-04] MEDS: K and/or MAG REPLACEMENT MC SCH (08:00)
[2018-01-04] MEDS: lactobacillus rhamnosus 10,000 MMU CELLS/CAPSULE PO SCH (08:21)
[2018-01-04] MEDS: aspirin 81mg tab.chew PO SCH (08:21)
[2018-01-04] MEDS: docusate sod 100mg capsule PO SCH (08:21)
[2018-01-04] MEDS: pantoprazole 40mg Tablet.DR PO SCH (08:21)
[2018-01-04] MEDS: magnesium Cl slow-release 64mg tablet PO SCH (08:21)
[2018-01-04] MEDS: atenolol 25mg tablet PO SCH (08:21)
[2018-01-04] MEDS ORDERED: COU3T PO (08:26)
[2018-01-04] MEDS ORDERED: COL100C PO (08:26)
== END 2018-01-04 11:20 | disposition home or self-care (01) | DRG 233 ==
LOC: SSTAY O 09:49 → PCU 3S 17:44 → CICU 2S 12-30 12:59 → PCU 3S 01-01 13:40
PROVIDERS: ADMIT Family Medicine; ATTEND Internal Medicine Interventional Cardiology
PROC: 4A023N7 Measurement of Cardiac Sampling and Pressure, Left Heart, Percutaneous Approach (ICD-10-PCS; principal; 2017-12-28)
PROC: B2111ZZ Fluoroscopy of Multiple Coronary Arteries using Low Osmolar Contrast (ICD-10-PCS; 2017-12-28)
PROC: B2151ZZ Fluoroscopy of Left Heart using Low Osmolar Contrast (ICD-10-PCS; 2017-12-28)
PROC: B3201ZZ Computerized Tomography (CT Scan) of Thoracic Aorta using Low Osmolar Contrast (ICD-10-PCS; 2017-12-29)
PROC: 02100Z9 Bypass Coronary Artery, One Artery from Left Internal Mammary, Open Approach (ICD-10-PCS; 2017-12-30)
PROC: 021009W Bypass Coronary Artery, One Artery from Aorta with Autologous Venous Tissue, Open Approach (ICD-10-PCS; 2017-12-30)
PROC: 06BP4ZZ Excision of Right Saphenous Vein, Percutaneous Endoscopic Approach (ICD-10-PCS; 2017-12-30)
PROC: 05HM33Z Insertion of Infusion Device into Right Internal Jugular Vein, Percutaneous Approach (ICD-10-PCS; 2017-12-30)
PROC: 3E080GC Introduction of Other Therapeutic Substance into Heart, Open Approach (ICD-10-PCS; 2017-12-30)
PROC: B24BZZ4 Ultrasonography of Heart with Aorta, Transesophageal (ICD-10-PCS; 2017-12-30)
PROC: 5A09357 Assistance with Respiratory Ventilation, Less than 24 Consecutive Hours, Continuous Positive Airway Pressure (ICD-10-PCS; 2018-01-01)
DX: I25.10 Atherosclerotic heart disease of native coronary artery without angina pectoris (principal); I50.31 Acute diastolic (congestive) heart failure; I31.0 Chronic adhesive pericarditis; Z68.41 Body mass index [BMI] 40.0-44.9, adult; E78.5 Hyperlipidemia, unspecified; G47.33 Obstructive sleep apnea (adult) (pediatric); I11.0 Hypertensive heart disease with heart failure; E66.01 Morbid (severe) obesity due to excess calories; I44.0 Atrioventricular block, first degree; Z96.642 Presence of left artificial hip joint; Z96.653 Presence of artificial knee joint, bilateral; R00.8 Other abnormalities of heart beat; R94.39 Abnormal result of other cardiovascular function study; E78.00 Pure hypercholesterolemia, unspecified; I27.20 Pulmonary hypertension, unspecified; I34.0 Nonrheumatic mitral (valve) insufficiency; Z90.49 Acquired absence of other specified parts of digestive tract; Z95.2 Presence of prosthetic heart valve; Z79.899 Other long term (current) drug therapy; Z79.82 Long term (current) use of aspirin; Z83.3 Family history of diabetes mellitus; Z82.49 Family history of ischemic heart disease and other diseases of the circulatory system; Z81.8 Family history of other mental and behavioral disorders
CPT/HCPCS: 0232T; 93312; 93325; 93458; 36415; 36600; 71045; 71046; 71275; 80048; 80053; 80061; 82330; 82435; 82803; 82947; 82948; 83036; 83735; 84100; 84132; 84295; 85018; 85025; 85027; 85347; 85384; 85610; 85730; 86885; 86900; 86901; 86920; 87070; 93005; 93880; 93971; 94002; 94003; 94060; 94760; 97110; 97116; 97162; 97530; 99152; 99153; A4620; A6255; A6257; A6258; A6402; A6446; A6449; A7000; A7048; C1713; C1751; C1769; J0690; J1644; J1650; J1815; J2001; J2060; J2150; J2250; J2270; J2405; J2440; J2704; J2930; J3010; J3370; J3475; J3480; J3490; J7030; J7120; P9045; P9047; Q0163; Q9967

== ENCOUNTER 2023-02-23 12:35 | Day surgery (SDC) | payer MEDICARE ==
[~2023-02-23] VITALS: Ht 170.2 cm; Wt 122.0 kg
[2023-02-23] VITALS (10 sets, daily range): BP systolic 125–145; BP diastolic 57–78; PULSE 47–64; RESP 12–14; TEMP 98.4; O2SAT 95–100
[~2023-02-23 12:35] MED LIST changes: -AMLO10TA PO; +COL100C PO; +COU3T PO; -COU7.5T PO; -LEVO500T89 PO; +LISI40TA13 PO; -LISI40TA4 PO; -OXYC-658 PO; -WARF-55 PO
[2023-02-23] MEDS ORDERED: MIDAZolam 1mg/ml 10ml vial IV ONE (12:55)
[2023-02-23] MEDS ORDERED: normal saline 1000ml 1,000 ML IV SCH (12:55)
[2023-02-23] MEDS ORDERED: fentaNYL/PF 50MCG/1 ML 2ML syringe IV ONE (12:55)
[2023-02-23] MEDS ORDERED: AMLO10TA13 PO (13:34)
[2023-02-23] MEDS ORDERED: AMI200T PO (13:34)
[2023-02-23] MEDS ORDERED: WARF6TAB7 PO (13:34)
[2023-02-23] MEDS ORDERED: ATOR-2 PO (13:35)
[2023-02-23] MEDS ORDERED: LISI40TA13 PO (13:37)
[2023-02-23 13:48] LABS: BASOPHILS # (AUTO) 0.1 X10'3 (0-0.2); BASOPHILS % (AUTO) 0.5 % (0-1); EOSINOPHILS # (AUTO) 0.2 X10'3 (0-0.9); EOSINOPHILS % (AUTO) 1.5 % (0-6); HEMATOCRIT 41.3 % (42.0-52.0); HEMOGLOBIN 13.6 g/dl (14.0-17.9); LYMPHOCYTES # (AUTO) 0.8 X10'3 (1.1-4.8); MEAN CORPUSCULAR HEMOGLOBIN 30.4 PG (27.0-31.0); MEAN CORPUSCULAR HGB CONC 32.8 g/dL (33.0-36.5); MEAN CORPUSCULAR VOLUME 92.8 FL (78-98); MEAN PLATELET VOLUME 8.9 FL (7.4-10.4); MONOCYTES % (AUTO) 9.3 % (2-12); NEUTROPHILS # (AUTO) 8.2 X10'3 (1.8-7.7); NEUTROPHILS % (AUTO) 80.7 % (42-75); PLATELET COUNT 183 X10'3 (140-440); RED BLOOD COUNT 4.45 X10'6 (4.70-6.10); RED CELL DISTRIBUTION WIDTH 16.8 % (11.5-14.5); WHITE BLOOD COUNT 10.2 X10'3 (4.5-11.0)
[2023-02-23 14:00] LABS: ALBUMIN 3.4 G/DL (3.4-5.0); ANION GAP 9 (8-16); BLOOD UREA NITROGEN 26 MG/DL (7-18); BUN/CREATININE RATIO 21.7 (10.0-20.0); CALCIUM 9.3 MG/DL (8.5-10.1); CHLORIDE 108 MMOL/L (99-107); GLUCOSE 130 MG/DL (70-104); INR 3.4 INR; POTASSIUM 4.4 MMOL/L (3.5-5.1); SODIUM 139 MMOL/L (135-145); TOTAL CARBON DIOXIDE 21.6 MMOL/L (24-32); eCRCL 52 ML/MIN; eGFR 60 ML/MIN
== END 2023-02-23 15:00 | disposition home or self-care (01) ==
LOC: SSTAY O 12:35
PROVIDERS: ATTEND Student in an Organized Health Care Education/Training Program
DX: I48.91 Unspecified atrial fibrillation (principal); I25.10 Atherosclerotic heart disease of native coronary artery without angina pectoris; E78.5 Hyperlipidemia, unspecified; G47.33 Obstructive sleep apnea (adult) (pediatric); I11.0 Hypertensive heart disease with heart failure; I50.9 Heart failure, unspecified; I35.1 Nonrheumatic aortic (valve) insufficiency; I44.0 Atrioventricular block, first degree; I27.20 Pulmonary hypertension, unspecified; I42.9 Cardiomyopathy, unspecified; Z79.82 Long term (current) use of aspirin; Z79.899 Other long term (current) drug therapy; Z95.1 Presence of aortocoronary bypass graft; Z79.01 Long term (current) use of anticoagulants; Z95.2 Presence of prosthetic heart valve
CPT/HCPCS: 36415; 80048; 85025; 85610; 92960; 93005; J2250; J3010; J7030; A4620

== ENCOUNTER 2023-12-09 09:27 | Inpatient (IN) | payer MEDICARE ==
[2023-12-09] VITALS (9 sets, daily range): BP systolic 107–130; BP diastolic 65–74; PULSE 70; RESP 19–38; TEMP 96.9–97.8; O2SAT 90–96
[~2023-12-09] VITALS: Ht 170.2 cm; Wt 126.0 kg
[~2023-12-09 09:27] MED LIST changes: +AMI200T PO; +AMLO10TA13 PO; -ASPI81TA30 PO; -ATEN50TA PO; +ATOR-2 PO; -ATOR40TA PO; -COL100C PO; -COU3T PO; +FURO40TA4 PO; -HYDR-4353 PO; +METO-384 PO; +SPIR25TA5 PO; +WARF6TAB7 PO
[2023-12-09 11:20] LABS: ABG HCO3 35.2 mmol/L (21.0-28.0); ABG OXYGEN SATURATION 93.9 % (94.0-98.0); ABG PCO2 (T) 60.1 mmHg (35.0-48.0); ABG PH (T) 7.384 (7.350-7.450); ABG PO2 (T) 66.9 mmHg (83.0-108.0); ALLEN'S TEST POSITIVE; FCOHb 1.1 % (0.5-1.5); FO2Hb 92.9 % (94.0-98.0); MODE MASK - BIPAP; PATIENT TEMPERATURE 36.7; RESPIRATORY RATE 10 b/min; TIDAL VOLUME 360 mL; TOTAL HEMOGLOBIN 13.6 G/dl (13.5-17.5)
[2023-12-09] MEDS ORDERED: LISI-644 PO (12:42)
[2023-12-09] MEDS ORDERED: AMLO5TAB PO (12:42)
[2023-12-09] MEDS ORDERED: WARF3TAB56 PO (12:42)
[2023-12-09] MEDS ORDERED: KAY15L PO (12:48)
[2023-12-09] MEDS ORDERED: ZAR2.5T PO (12:48)
[2023-12-09] MEDS ORDERED: RISP0.253 PO (12:52)
[2023-12-09] MEDS ORDERED: DOCU-148 PO (12:52)
[2023-12-09] MEDS ORDERED: POLY119P2 PO (12:53)
[2023-12-09] MEDS ORDERED: MUPI22OI30 TP (12:59)
[2023-12-09] MEDS ORDERED: ciprofloxacin PO (12:59)
[2023-12-09] MEDS ORDERED: IPRA3AMP31 NEB (12:59)
[2023-12-09] MEDS ORDERED: magnesium sulf-water 4G/100mL 100 ML IV PRN (13:05)
[2023-12-09] MEDS ORDERED: magnesium Cl slow-release 64mg tablet PO PRN (13:05)
[2023-12-09] MEDS ORDERED: potassium Cl 20 mEq SR tablet PO PRN ×2 (13:05)
[2023-12-09] MEDS ORDERED: magnesium sulf-water 2g/50mL 50 ML IV PRN (13:05)
[2023-12-09] MEDS ORDERED: acetaminophen 325mg tablet PO PRN ×2 (13:05)
[2023-12-09] MEDS ORDERED: ondansetron/PF 4mg/2ml inj IV PRN (13:05)
[2023-12-09] MEDS ORDERED: HYDROcodone/acetaminophen 5mg/325mg tablet PO PRN (13:05)
[2023-12-09] MEDS ORDERED: morphine 2 MG/ML inj. syringe IV PRN (13:05)
[2023-12-09] MEDS ORDERED: potassium Cl 40MEQ/1/2NS 520ml 520 ML IV PRN (13:05)
[2023-12-09] MEDS ORDERED: albumin (human) 25% 100ml IV 100 ML in normal saline 500ml IV soln 400 ML IV ONE (13:20)
[2023-12-09 14:16] LABS: INR 2.5 INR; PROTHROMBIN TIME 24.1 SECONDS (9.0-12.0)
[2023-12-09] MEDS: albumin (human) 25% 100ml IV 100 ML IV ONE (16:21)
[2023-12-09] MEDS ORDERED: albuterol 2.5 MG/3 ML nebule NEB PRN (17:00)
[2023-12-09] MEDS: INSULIN LISPRO 100 UNIT/ML INSULN.PEN MULTI-DOSE SQ SCH (17:41)
[2023-12-09] MEDS ORDERED: INSULIN LISPRO 100 UNIT/ML INSULN.PEN MULTI-DOSE SQ SCH (18:00)
[2023-12-09] MEDS ORDERED: insulin glargine (Lantus) pen - multi-dose SQ SCH (21:00)
[2023-12-09 21:40] LABS: BASOPHILS # (AUTO) 0.1 X10'3 (0-0.2); BASOPHILS % (AUTO) 0.7 % (0-1); EOSINOPHILS # (AUTO) 0.4 X10'3 (0-0.9); EOSINOPHILS % (AUTO) 4.2 % (0-6); HEMATOCRIT 40.1 % (42.0-52.0); HEMOGLOBIN 12.6 g/dl (14.0-17.9); LYMPHOCYTES # (AUTO) 0.5 X10'3 (1.1-4.8); LYMPHOCYTES % (AUTO) 5.9 % (21-51); MEAN CORPUSCULAR HEMOGLOBIN 28.9 PG (27.0-31.0); MEAN CORPUSCULAR HGB CONC 31.3 g/dL (33.0-36.5); MEAN CORPUSCULAR VOLUME 92.2 FL (78-98); MEAN PLATELET VOLUME 9.2 FL (7.4-10.4); MONOCYTES % (AUTO) 11.7 % (2-12); NEUTROPHILS # (AUTO) 6.7 X10'3 (1.8-7.7); NEUTROPHILS % (AUTO) 77.5 % (42-75); PLATELET COUNT 149 X10'3 (140-440); RED BLOOD COUNT 4.35 X10'6 (4.70-6.10); RED CELL DISTRIBUTION WIDTH 21.2 % (11.5-14.5); WHITE BLOOD COUNT 8.6 X10'3 (4.5-11.0)
[2023-12-09] MEDS: furosemide 40mg/4ml inj IV SCH (22:03)
[2023-12-09 22:16] LABS: ANISOCYTOSIS 3+; BURR CELLS FEW; PLATELET ESTIMATE NORMAL; POLYCHROMASIA FEW; TARGET CELLS FEW
[2023-12-09] MEDS: heparin, porcine 5000 units/ml vial SQ SCH (22:26)
[2023-12-10] VITALS (13 sets, daily range): BP systolic 107–138; BP diastolic 65–79; PULSE 70–73; RESP 18–37; TEMP 96.5–97.6; O2SAT 90–95
[2023-12-10 07:47] LABS: BASOPHILS % (AUTO) 0.5 % (0-1); EOSINOPHILS # (AUTO) 0.3 X10'3 (0-0.9); EOSINOPHILS % (AUTO) 4.4 % (0-6); HEMATOCRIT 40.3 % (42.0-52.0); HEMOGLOBIN 13.1 g/dl (14.0-17.9); LYMPHOCYTES # (AUTO) 0.6 X10'3 (1.1-4.8); MEAN CORPUSCULAR HEMOGLOBIN 29.6 PG (27.0-31.0); MEAN CORPUSCULAR HGB CONC 32.6 g/dL (33.0-36.5); MEAN CORPUSCULAR VOLUME 90.8 FL (78-98); MEAN PLATELET VOLUME 9.3 FL (7.4-10.4); MONOCYTES # (AUTO) 0.9 X10'3 (0-0.9); MONOCYTES % (AUTO) 11.5 % (2-12); NEUTROPHILS # (AUTO) 5.9 X10'3 (1.8-7.7); NEUTROPHILS % (AUTO) 75.6 % (42-75); PLATELET COUNT 155 X10'3 (140-440); RED BLOOD COUNT 4.44 X10'6 (4.70-6.10); RED CELL DISTRIBUTION WIDTH 20.8 % (11.5-14.5); WHITE BLOOD COUNT 7.8 X10'3 (4.5-11.0)
[2023-12-10] MEDS ORDERED: risperiDONE 0.25mg tablet PO SCH (08:00)
[2023-12-10 08:25] LABS: ALANINE AMINOTRANSFERASE 31 U/L (12-78); ALBUMIN 2.9 G/DL (3.4-5.0); ALBUMIN/GLOBULIN RATIO 0.6 (1.1-1.5); ALKALINE PHOSPHATASE 261 IU/L (46-116); ANION GAP 4 (8-16); ASPARTATE AMINO TRANSFERASE 34 U/L (10-37); BILIRUBIN,TOTAL 1.2 MG/DL (0.1-1.0); BLOOD UREA NITROGEN 80 MG/DL (7-18); CALCIUM 9.5 MG/DL (8.5-10.1); CHLORIDE 103 MMOL/L (99-107); CREATININE 1.25 MG/DL (0.60-1.10); GLUCOSE 117 MG/DL (70-104); POTASSIUM 5.3 MMOL/L (3.5-5.1); SODIUM 141 MMOL/L (135-145); TOTAL CARBON DIOXIDE 33.9 MMOL/L (24-32); TOTAL PROTEIN 7.4 G/DL (6.4-8.2); eCRCL 49 ML/MIN; eGFR 57 ML/MIN
[2023-12-10] MEDS: bisacodyl 10mg suppository rectal RC PRN (08:46)
[2023-12-10] MEDS: mupirocin 2% ointment 22GM TP SCH (08:46)
[2023-12-10 09:20] LABS: BILIRUBIN,DIRECT 0.7 MG/DL (0-0.3); FREE T4 (FREE THYROXINE) 1.03 NG/DL (0.73-1.40); THYROID STIMULATING HORMONE 2.87 ulU/ml (0.34-4.50)
[2023-12-10] MEDS: risperiDONE 0.25mg tablet PO SCH (11:11)
[2023-12-10] MEDS: metolazone 2.5mg tablet PO SCH (11:28)
[2023-12-10] MEDS: metoprolol succinate 25mg (24-HOUR) SR. Tablet PO SCH (11:29)
[2023-12-10] MEDS: lisinopril 20mg tablet PO SCH (11:30)
[2023-12-10] MEDS: amLODIPine 5mg tablet PO SCH (11:30)
[2023-12-10] MEDS: polyethylene glycol 3350 17gm powd pack PO SCH (11:30)
[2023-12-10] MEDS: atorvastatin 20mg tablet PO SCH (11:31)
[2023-12-10] MEDS: amiodarone 200mg tablet PO SCH (11:31)
[2023-12-10] MEDS: warfarin 3mg tablet PO ONE (21:32)
[2023-12-11] VITALS (16 sets, daily range): BP systolic 96–135; BP diastolic 63–84; PULSE 70–95; RESP 16–39; TEMP 96.6–98.2; O2SAT 93–98
[2023-12-11 07:23] LABS: BASOPHILS # (AUTO) 0.1 X10'3 (0-0.2); BASOPHILS % (AUTO) 1.1 % (0-1); EOSINOPHILS # (AUTO) 0.2 X10'3 (0-0.9); EOSINOPHILS % (AUTO) 3.2 % (0-6); HEMATOCRIT 39.9 % (42.0-52.0); HEMOGLOBIN 12.6 g/dl (14.0-17.9); LYMPHOCYTES # (AUTO) 0.4 X10'3 (1.1-4.8); LYMPHOCYTES % (AUTO) 4.9 % (21-51); MEAN CORPUSCULAR HEMOGLOBIN 28.8 PG (27.0-31.0); MEAN CORPUSCULAR HGB CONC 31.6 g/dL (33.0-36.5); MEAN CORPUSCULAR VOLUME 91.1 FL (78-98); MEAN PLATELET VOLUME 9.5 FL (7.4-10.4); MONOCYTES # (AUTO) 0.7 X10'3 (0-0.9); MONOCYTES % (AUTO) 9.2 % (2-12); NEUTROPHILS # (AUTO) 6.2 X10'3 (1.8-7.7); NEUTROPHILS % (AUTO) 81.6 % (42-75); PLATELET COUNT 153 X10'3 (140-440); RED BLOOD COUNT 4.39 X10'6 (4.70-6.10); RED CELL DISTRIBUTION WIDTH 20.4 % (11.5-14.5); WHITE BLOOD COUNT 7.6 X10'3 (4.5-11.0)
[2023-12-11 07:30] LABS: INR 1.5 INR; PROTHROMBIN TIME 15.6 SECONDS (9.0-12.0)
[2023-12-11 07:41] LABS: ABG BASE EXCESS 10.2 mmol/L (-2.0-3.0); ABG HCO3 36.8 mmol/L (21.0-28.0); ABG OXYGEN SATURATION 90.5 % (94.0-98.0); ABG PCO2 (T) 57.7 mmHg (35.0-48.0); ABG PH (T) 7.422 (7.350-7.450); ABG PO2 (T) 59.6 mmHg (83.0-108.0); FCOHb 1.3 % (0.5-1.5); FHHb 9.4 % (0.0-5.0); FO2Hb 89.3 % (94.0-98.0); MODE BiPAP; PATIENT TEMPERATURE 36.8
[2023-12-11 07:49] LABS: ALANINE AMINOTRANSFERASE 28 U/L (12-78); ALBUMIN 2.7 G/DL (3.4-5.0); ALBUMIN/GLOBULIN RATIO 0.6 (1.1-1.5); ALKALINE PHOSPHATASE 241 IU/L (46-116); ANION GAP 6 (8-16); ASPARTATE AMINO TRANSFERASE 32 U/L (10-37); BILIRUBIN,TOTAL 1.4 MG/DL (0.1-1.0); BLOOD UREA NITROGEN 72 MG/DL (7-18); BUN/CREATININE RATIO 66.7 (10.0-20.0); CALCIUM 9.4 MG/DL (8.5-10.1); CHLORIDE 102 MMOL/L (99-107); CREATININE 1.08 MG/DL (0.60-1.10); GLUCOSE 115 MG/DL (70-104); POTASSIUM 5.1 MMOL/L (3.5-5.1); SODIUM 144 MMOL/L (135-145); TOTAL CARBON DIOXIDE 36.2 MMOL/L (24-32); eCRCL 57 ML/MIN; eGFR 67 ML/MIN
[2023-12-11] MEDS ORDERED: warfarin 3mg tablet PO SCH (08:00)
[2023-12-11 08:23] LABS: PLATELET ESTIMATE NORMAL
[2023-12-11 08:24] LABS: ANISOCYTOSIS 3+; ELLIPTOCYTES FEW; SCHISTOCYTES FEW
[2023-12-11] MEDS: aspirin 81mg, enteric-coated 1 TAB TABLET.DR PO SCH (09:10)
[2023-12-11 10:21] LABS: INR 1.5 INR; PROTHROMBIN TIME 15.6 SECONDS (9.0-12.0)
[2023-12-11] MEDS: warfarin 3mg tablet PO ONE (20:01)
[2023-12-12] VITALS (15 sets, daily range): BP systolic 87–103; BP diastolic 50–67; PULSE 62–70; RESP 10–35; TEMP 97.5–98; O2SAT 93–98
[2023-12-12 05:39] LABS: BASOPHILS # (AUTO) 0.1 X10'3 (0-0.2); BASOPHILS % (AUTO) 1.1 % (0-1); EOSINOPHILS # (AUTO) 0.3 X10'3 (0-0.9); EOSINOPHILS % (AUTO) 4.6 % (0-6); HEMATOCRIT 39.8 % (42.0-52.0); HEMOGLOBIN 12.6 g/dl (14.0-17.9); LYMPHOCYTES # (AUTO) 0.5 X10'3 (1.1-4.8); LYMPHOCYTES % (AUTO) 7.2 % (21-51); MEAN CORPUSCULAR HEMOGLOBIN 28.7 PG (27.0-31.0); MEAN CORPUSCULAR HGB CONC 31.6 g/dL (33.0-36.5); MEAN CORPUSCULAR VOLUME 90.9 FL (78-98); MEAN PLATELET VOLUME 9.2 FL (7.4-10.4); MONOCYTES # (AUTO) 0.9 X10'3 (0-0.9); MONOCYTES % (AUTO) 11.4 % (2-12); NEUTROPHILS # (AUTO) 5.7 X10'3 (1.8-7.7); NEUTROPHILS % (AUTO) 75.7 % (42-75); PLATELET COUNT 156 X10'3 (140-440); RED BLOOD COUNT 4.37 X10'6 (4.70-6.10); RED CELL DISTRIBUTION WIDTH 20.6 % (11.5-14.5); WHITE BLOOD COUNT 7.5 X10'3 (4.5-11.0)
[2023-12-12 05:45] LABS: INR 1.6 INR; PROTHROMBIN TIME 16.5 SECONDS (9.0-12.0)
[2023-12-12 05:49] LABS: ALBUMIN 2.6 G/DL (3.4-5.0); ANION GAP 0 (8-16); BILIRUBIN,TOTAL 1.2 MG/DL (0.1-1.0); BLOOD UREA NITROGEN 76 MG/DL (7-18); CALCIUM 9.5 MG/DL (8.5-10.1); CHLORIDE 102 MMOL/L (99-107); CREATININE 1.17 MG/DL (0.60-1.10); GLUCOSE 101 MG/DL (70-104); SODIUM 145 MMOL/L (135-145); TOTAL PROTEIN 6.9 G/DL (6.4-8.2); eCRCL 53 ML/MIN; eGFR 61 ML/MIN
[2023-12-12 05:50] LABS: ALANINE AMINOTRANSFERASE 36 U/L (12-78); ALBUMIN/GLOBULIN RATIO 0.6 (1.1-1.5); ALKALINE PHOSPHATASE 240 IU/L (46-116); ASPARTATE AMINO TRANSFERASE 30 U/L (10-37)
[2023-12-12 05:58] LABS: TOTAL CARBON DIOXIDE 42.6 MMOL/L (24-32)
[2023-12-12] MEDS: amiodarone 100mg tablet PO SCH (20:51)
[2023-12-12] MEDS: warfarin 7.5mg tablet PO ONE (20:59)
[2023-12-13] VITALS (15 sets, daily range): BP systolic 98–116; BP diastolic 52–71; PULSE 70–72; RESP 16–33; TEMP 96.6–98.8; O2SAT 69–98
[2023-12-13 05:58] LABS: BASOPHILS # (AUTO) 0.1 X10'3 (0-0.2); BASOPHILS % (AUTO) 0.7 % (0-1); EOSINOPHILS # (AUTO) 0.4 X10'3 (0-0.9); EOSINOPHILS % (AUTO) 4.7 % (0-6); HEMATOCRIT 38.2 % (42.0-52.0); HEMOGLOBIN 12.4 g/dl (14.0-17.9); LYMPHOCYTES # (AUTO) 0.6 X10'3 (1.1-4.8); LYMPHOCYTES % (AUTO) 7.5 % (21-51); MEAN CORPUSCULAR HEMOGLOBIN 29.4 PG (27.0-31.0); MEAN CORPUSCULAR HGB CONC 32.5 g/dL (33.0-36.5); MEAN CORPUSCULAR VOLUME 90.3 FL (78-98); MEAN PLATELET VOLUME 9.5 FL (7.4-10.4); MONOCYTES % (AUTO) 12.4 % (2-12); NEUTROPHILS # (AUTO) 5.9 X10'3 (1.8-7.7); NEUTROPHILS % (AUTO) 74.7 % (42-75); PLATELET COUNT 164 X10'3 (140-440); RED BLOOD COUNT 4.23 X10'6 (4.70-6.10); RED CELL DISTRIBUTION WIDTH 20.1 % (11.5-14.5); WHITE BLOOD COUNT 7.9 X10'3 (4.5-11.0)
[2023-12-13 06:03] LABS: PROTHROMBIN TIME 19.5 SECONDS (9.0-12.0)
[2023-12-13 06:16] LABS: ALANINE AMINOTRANSFERASE 34 U/L (12-78); ALBUMIN 2.6 G/DL (3.4-5.0); ALBUMIN/GLOBULIN RATIO 0.6 (1.1-1.5); ALKALINE PHOSPHATASE 259 IU/L (46-116); ANION GAP 0 (8-16); ASPARTATE AMINO TRANSFERASE 41 U/L (10-37); BILIRUBIN,TOTAL 1.1 MG/DL (0.1-1.0); BLOOD UREA NITROGEN 72 MG/DL (7-18); BUN/CREATININE RATIO 63.2 (10.0-20.0); CALCIUM 9.2 MG/DL (8.5-10.1); CHLORIDE 102 MMOL/L (99-107); CREATININE 1.14 MG/DL (0.60-1.10); GLUCOSE 101 MG/DL (70-104); SODIUM 142 MMOL/L (135-145); TOTAL CARBON DIOXIDE 39.8 MMOL/L (24-32); eCRCL 54 ML/MIN; eGFR 63 ML/MIN
[2023-12-13 06:45] LABS: ACANTHOCYTES FEW; ANISOCYTOSIS 3+; ELLIPTOCYTES FEW; HYPOCHROMASIA 1+; PLATELET ESTIMATE NORMAL; TARGET CELLS FEW
[2023-12-13] MEDS: lisinopril 10 MG tablet PO SCH (09:06)
[2023-12-13] MEDS: warfarin 7.5mg tablet PO ONE (20:23)
[2023-12-14] VITALS (16 sets, daily range): BP systolic 90–115; BP diastolic 60–69; PULSE 65–75; RESP 17–27; TEMP 97.3–98.6; O2SAT 88–100
[2023-12-14 06:53] LABS: BASOPHILS % (AUTO) 0.6 % (0-1); EOSINOPHILS # (AUTO) 0.4 X10'3 (0-0.9); EOSINOPHILS % (AUTO) 5.2 % (0-6); HEMATOCRIT 38.6 % (42.0-52.0); HEMOGLOBIN 12.4 g/dl (14.0-17.9); LYMPHOCYTES # (AUTO) 0.7 X10'3 (1.1-4.8); LYMPHOCYTES % (AUTO) 9.4 % (21-51); MEAN CORPUSCULAR HEMOGLOBIN 28.9 PG (27.0-31.0); MEAN CORPUSCULAR HGB CONC 32.1 g/dL (33.0-36.5); MEAN CORPUSCULAR VOLUME 90.2 FL (78-98); MEAN PLATELET VOLUME 9.1 FL (7.4-10.4); MONOCYTES # (AUTO) 0.9 X10'3 (0-0.9); MONOCYTES % (AUTO) 11.8 % (2-12); NEUTROPHILS # (AUTO) 5.3 X10'3 (1.8-7.7); PLATELET COUNT 153 X10'3 (140-440); RED BLOOD COUNT 4.28 X10'6 (4.70-6.10); RED CELL DISTRIBUTION WIDTH 19.7 % (11.5-14.5); WHITE BLOOD COUNT 7.2 X10'3 (4.5-11.0)
[2023-12-14 07:03] LABS: INR 2.3 INR; PROTHROMBIN TIME 22.6 SECONDS (9.0-12.0)
[2023-12-14 07:10] LABS: ALANINE AMINOTRANSFERASE 36 U/L (12-78); ALBUMIN 2.5 G/DL (3.4-5.0); ALBUMIN/GLOBULIN RATIO 0.6 (1.1-1.5); ALKALINE PHOSPHATASE 268 IU/L (46-116); ANION GAP -1 (8-16); ASPARTATE AMINO TRANSFERASE 57 U/L (10-37); BILIRUBIN,TOTAL 1.1 MG/DL (0.1-1.0); BLOOD UREA NITROGEN 70 MG/DL (7-18); BUN/CREATININE RATIO 57.9 (10.0-20.0); CALCIUM 9.3 MG/DL (8.5-10.1); CHLORIDE 101 MMOL/L (99-107); CREATININE 1.21 MG/DL (0.60-1.10); GLUCOSE 103 MG/DL (70-104); SODIUM 141 MMOL/L (135-145); TOTAL PROTEIN 6.8 G/DL (6.4-8.2); eCRCL 51 ML/MIN; eGFR 59 ML/MIN
[2023-12-14 07:14] LABS: TOTAL CARBON DIOXIDE 41.2 MMOL/L (24-32)
[2023-12-14 09:28] LABS: ABG BASE EXCESS 14.4 mmol/L (-2.0-3.0); ABG HCO3 41.6 mmol/L (21.0-28.0); ABG OXYGEN SATURATION 92.6 % (94.0-98.0); ABG PCO2 (T) 61.7 mmHg (35.0-48.0); ABG PH (T) 7.445 (7.350-7.450); ABG PO2 (T) 64.7 mmHg (83.0-108.0); ALLEN'S TEST POSITIVE; FCOHb 1.2 % (0.5-1.5); FHHb 7.3 % (0.0-5.0); FLOW 3 L/min; FO2Hb 91.5 % (94.0-98.0); MODE NASAL CANNULA; PATIENT TEMPERATURE 36.7; TOTAL HEMOGLOBIN 13.9 G/dl (13.5-17.5)
[2023-12-14] MEDS: JUVEN Smoothie Arginine/Glut./Ca2+Bmb (Juven 19.3pkt) 240ml cup PO SCH (18:22)
[2023-12-14] MEDS: warfarin 3mg tablet PO ONE (20:28)
[2023-12-14] MEDS: furosemide 40mg tablet PO SCH (20:28)
[2023-12-15] VITALS (15 sets, daily range): BP systolic 94–116; BP diastolic 59–65; PULSE 67–70; RESP 16–42; TEMP 97.1–97.4; O2SAT 90–97
[2023-12-15] MEDS: LORazepam 2 mg/ml vial IV ONE (04:21)
[2023-12-15 06:36] LABS: INR 3.2 INR; PROTHROMBIN TIME 30.8 SECONDS (9.0-12.0)
[2023-12-15] MEDS: multivitamins, therapeutics tablet PO SCH (08:53)
[2023-12-15 10:25] LABS: BASOPHILS # (AUTO) 0.1 X10'3 (0-0.2); BASOPHILS % (AUTO) 0.9 % (0-1); EOSINOPHILS # (AUTO) 0.4 X10'3 (0-0.9); EOSINOPHILS % (AUTO) 6.3 % (0-6); HEMATOCRIT 36.2 % (42.0-52.0); HEMOGLOBIN 11.7 g/dl (14.0-17.9); LYMPHOCYTES # (AUTO) 0.7 X10'3 (1.1-4.8); LYMPHOCYTES % (AUTO) 10.4 % (21-51); MEAN CORPUSCULAR HEMOGLOBIN 28.9 PG (27.0-31.0); MEAN CORPUSCULAR HGB CONC 32.2 g/dL (33.0-36.5); MEAN CORPUSCULAR VOLUME 89.8 FL (78-98); MEAN PLATELET VOLUME 9.8 FL (7.4-10.4); MONOCYTES # (AUTO) 0.8 X10'3 (0-0.9); MONOCYTES % (AUTO) 12.3 % (2-12); NEUTROPHILS # (AUTO) 4.6 X10'3 (1.8-7.7); NEUTROPHILS % (AUTO) 70.1 % (42-75); PLATELET COUNT 154 X10'3 (140-440); RED BLOOD COUNT 4.04 X10'6 (4.70-6.10); RED CELL DISTRIBUTION WIDTH 19.9 % (11.5-14.5); WHITE BLOOD COUNT 6.5 X10'3 (4.5-11.0)
[2023-12-15 10:47] LABS: ALANINE AMINOTRANSFERASE 44 U/L (12-78); ALBUMIN 2.4 G/DL (3.4-5.0); ALBUMIN/GLOBULIN RATIO 0.6 (1.1-1.5); ALKALINE PHOSPHATASE 244 IU/L (46-116); ANION GAP 0 (8-16); ASPARTATE AMINO TRANSFERASE 77 U/L (10-37); BILIRUBIN,TOTAL 0.9 MG/DL (0.1-1.0); BLOOD UREA NITROGEN 68 MG/DL (7-18); BUN/CREATININE RATIO 61.3 (10.0-20.0); CHLORIDE 101 MMOL/L (99-107); CREATININE 1.11 MG/DL (0.60-1.10); GLUCOSE 97 MG/DL (70-104); POTASSIUM 4.6 MMOL/L (3.5-5.1); SODIUM 141 MMOL/L (135-145); TOTAL CARBON DIOXIDE 39.6 MMOL/L (24-32); TOTAL PROTEIN 6.4 G/DL (6.4-8.2); eCRCL 55 ML/MIN; eGFR 65 ML/MIN
[2023-12-15] MEDS: warfarin 3mg tablet PO ONE (19:48)
[2023-12-16] VITALS (15 sets, daily range): BP systolic 90–131; BP diastolic 57–82; PULSE 63–70; RESP 13–29; TEMP 96.8–98; O2SAT 92–97
[2023-12-16 07:34] LABS: PROTHROMBIN TIME 37.8 SECONDS (9.0-12.0)
[2023-12-16 09:14] LABS: BASOPHILS % (AUTO) 0.5 % (0-1); EOSINOPHILS # (AUTO) 0.4 X10'3 (0-0.9); EOSINOPHILS % (AUTO) 5.2 % (0-6); HEMATOCRIT 38.3 % (42.0-52.0); HEMOGLOBIN 12.3 g/dl (14.0-17.9); LYMPHOCYTES # (AUTO) 0.8 X10'3 (1.1-4.8); LYMPHOCYTES % (AUTO) 10.2 % (21-51); MEAN CORPUSCULAR HEMOGLOBIN 29.1 PG (27.0-31.0); MEAN CORPUSCULAR HGB CONC 32.2 g/dL (33.0-36.5); MEAN CORPUSCULAR VOLUME 90.5 FL (78-98); MEAN PLATELET VOLUME 9.9 FL (7.4-10.4); MONOCYTES # (AUTO) 0.8 X10'3 (0-0.9); MONOCYTES % (AUTO) 11.2 % (2-12); NEUTROPHILS # (AUTO) 5.5 X10'3 (1.8-7.7); NEUTROPHILS % (AUTO) 72.9 % (42-75); PLATELET COUNT 156 X10'3 (140-440); RED BLOOD COUNT 4.23 X10'6 (4.70-6.10); RED CELL DISTRIBUTION WIDTH 20.1 % (11.5-14.5); WHITE BLOOD COUNT 7.6 X10'3 (4.5-11.0)
[2023-12-16 09:22] LABS: ALBUMIN 2.6 G/DL (3.4-5.0); ANION GAP 1 (8-16); BLOOD UREA NITROGEN 65 MG/DL (7-18); BUN/CREATININE RATIO 60.2 (10.0-20.0); CALCIUM 9.3 MG/DL (8.5-10.1); CHLORIDE 101 MMOL/L (99-107); CREATININE 1.08 MG/DL (0.60-1.10); GLUCOSE 109 MG/DL (70-104); POTASSIUM 4.8 MMOL/L (3.5-5.1); SODIUM 142 MMOL/L (135-145); TOTAL CARBON DIOXIDE 39.6 MMOL/L (24-32); eCRCL 57 ML/MIN; eGFR 67 ML/MIN
[2023-12-16 09:32] LABS: ANISOCYTOSIS 3+; PLATELET ESTIMATE NORMAL
[2023-12-16 09:34] LABS: ELLIPTOCYTES FEW; TARGET CELLS FEW
[2023-12-17] VITALS (7 sets, daily range): BP systolic 103–139; BP diastolic 68–73; PULSE 70–71; RESP 16–35; TEMP 97.9–98.2; O2SAT 91–98
[2023-12-17 07:49] LABS: BASOPHILS # (AUTO) 0.1 X10'3 (0-0.2); BASOPHILS % (AUTO) 0.7 % (0-1); EOSINOPHILS # (AUTO) 0.2 X10'3 (0-0.9); EOSINOPHILS % (AUTO) 2.4 % (0-6); HEMATOCRIT 40.2 % (42.0-52.0); HEMOGLOBIN 13.2 g/dl (14.0-17.9); LYMPHOCYTES # (AUTO) 0.7 X10'3 (1.1-4.8); MEAN CORPUSCULAR HEMOGLOBIN 29.5 PG (27.0-31.0); MEAN CORPUSCULAR HGB CONC 32.7 g/dL (33.0-36.5); MEAN CORPUSCULAR VOLUME 90.1 FL (78-98); MEAN PLATELET VOLUME 9.9 FL (7.4-10.4); MONOCYTES % (AUTO) 10.6 % (2-12); NEUTROPHILS # (AUTO) 7.3 X10'3 (1.8-7.7); NEUTROPHILS % (AUTO) 78.3 % (42-75); PLATELET COUNT 165 X10'3 (140-440); RED BLOOD COUNT 4.46 X10'6 (4.70-6.10); RED CELL DISTRIBUTION WIDTH 20.1 % (11.5-14.5); WHITE BLOOD COUNT 9.4 X10'3 (4.5-11.0)
[2023-12-17 08:01] LABS: PROTHROMBIN TIME 41.9 SECONDS (9.0-12.0)
[2023-12-17] MEDS: metoprolol succinate 25mg (24-HOUR) SR. Tablet PO SCH (08:33)
[2023-12-17] MEDS: lisinopril 5mg tablet PO SCH (08:34)
[2023-12-17 09:00] LABS: ALBUMIN 2.8 G/DL (3.4-5.0); ANION GAP 3 (8-16); BLOOD UREA NITROGEN 56 MG/DL (7-18); BUN/CREATININE RATIO 49.1 (10.0-20.0); CALCIUM 9.5 MG/DL (8.5-10.1); CHLORIDE 99 MMOL/L (99-107); CREATININE 1.14 MG/DL (0.60-1.10); GLUCOSE 123 MG/DL (70-104); INR 4.5 INR; POTASSIUM 5.2 MMOL/L (3.5-5.1); SODIUM 140 MMOL/L (135-145); TOTAL CARBON DIOXIDE 38.2 MMOL/L (24-32); eCRCL 54 ML/MIN; eGFR 63 ML/MIN
[2023-12-17] MEDS ORDERED: ondansetron 4mg rapidly disintigrating tab PO PRN (14:35)
== END 2023-12-17 15:58 | DRG 291 ==
LOC: PCU 3S 10:48 → UNDOADMIN 10:48 → PCU 3S 13:15
PROVIDERS: ADMIT Internal Medicine; ATTEND Internal Medicine
PROC: 5A09357 Assistance with Respiratory Ventilation, Less than 24 Consecutive Hours, Continuous Positive Airway Pressure (ICD-10-PCS; principal; 2023-12-09)
PROC: 5A09357 Assistance with Respiratory Ventilation, Less than 24 Consecutive Hours, Continuous Positive Airway Pressure (ICD-10-PCS; 2023-12-11)
PROC: 5A0935A Assistance with Respiratory Ventilation, Less than 24 Consecutive Hours, High Flow/Velocity Cannula (ICD-10-PCS; 2023-12-11)
PROC: 5A09357 Assistance with Respiratory Ventilation, Less than 24 Consecutive Hours, Continuous Positive Airway Pressure (ICD-10-PCS; 2023-12-12)
PROC: 5A09357 Assistance with Respiratory Ventilation, Less than 24 Consecutive Hours, Continuous Positive Airway Pressure (ICD-10-PCS; 2023-12-13)
PROC: 5A09357 Assistance with Respiratory Ventilation, Less than 24 Consecutive Hours, Continuous Positive Airway Pressure (ICD-10-PCS; 2023-12-13)
PROC: 5A09357 Assistance with Respiratory Ventilation, Less than 24 Consecutive Hours, Continuous Positive Airway Pressure (ICD-10-PCS; 2023-12-14)
PROC: 5A09357 Assistance with Respiratory Ventilation, Less than 24 Consecutive Hours, Continuous Positive Airway Pressure (ICD-10-PCS; 2023-12-15)
DX: I13.0 Hypertensive heart and chronic kidney disease with heart failure and stage 1 through stage 4 chronic kidney disease, or unspecified chronic kidney disease (principal); I50.23 Acute on chronic systolic (congestive) heart failure; J96.01 Acute respiratory failure with hypoxia; L89.153 Pressure ulcer of sacral region, stage 3; N17.9 Acute kidney failure, unspecified; I48.91 Unspecified atrial fibrillation; E78.5 Hyperlipidemia, unspecified; I25.10 Atherosclerotic heart disease of native coronary artery without angina pectoris; N18.31 Chronic kidney disease, stage 3a; I87.2 Venous insufficiency (chronic) (peripheral); K59.00 Constipation, unspecified; E87.5 Hyperkalemia; I87.8 Other specified disorders of veins; Z79.899 Other long term (current) drug therapy; Z95.1 Presence of aortocoronary bypass graft; Z95.2 Presence of prosthetic heart valve; Z82.49 Family history of ischemic heart disease and other diseases of the circulatory system; I35.1 Nonrheumatic aortic (valve) insufficiency
CPT/HCPCS: 36415; 36600; 71045; 71250; 74176; 80048; 80053; 82248; 82803; 82948; 83880; 84145; 84439; 84443; 85008; 85018; 85025; 85610; 85651; 87081; 93005; 94660; 94760; 97110; 97116; 97163; 97530; A4615; A4620; A4649; A5200; A6196; A6212; A6213; A6253; A6446; A6449; G0378; J1644; J1815; J1940; J2060; P9047